=== PATIENT | female | born 1985 | race Caucasian/White ===

== ENCOUNTER 2018-05-12 11:11 | Outpatient (REF) | payer MEDICAID, SELFPAY ==
[2018-05-12 23:04] LABS: Cholesterol 168 mg/dL (50-200); HDL Cholesterol 37 mg/dL (40-60); LDL CHOLESTEROL 110 mg/dL (<100); TSH 2.31 uIU/mL (0.358-3.74); Triglyceride 94 mg/dL (30-150)
[2018-05-13 06:53] LABS: Vitamin D 25 Total 18.1 ng/ml (30-100)
[2018-05-14 09:38] LABS: Prolactin 8.1 ng/ml
[2018-05-17 12:13] LABS: 17-Hydroxyprogesterone 43 ng/dL
== END 2018-05-12 11:31 ==
LOC: NCHCN 11:11
PROVIDERS: PCP Registered Nurse; Visit Provider Registered Nurse
DX: N91.5 Oligomenorrhea, unspecified (principal); R53.83 Other fatigue; E66.01 Morbid (severe) obesity due to excess calories
CPT/HCPCS: 80061; 82306; 83721; 83498; 84146; 84443

== ENCOUNTER 2018-07-12 13:00 | Outpatient (REF) | payer MEDICAID, SELFPAY ==
[2018-07-12 22:09] LABS: Vitamin D 25 Total 24.6 ng/ml (30-100)
== END 2018-07-12 13:20 ==
LOC: NCHCN 13:00
PROVIDERS: PCP Registered Nurse; Visit Provider Registered Nurse
DX: E55.9 Vitamin D deficiency, unspecified (principal)
CPT/HCPCS: 82306

== ENCOUNTER 2019-04-21 12:29 | Outpatient (REF) | payer SELFPAY ==
[2019-04-21 20:44] LABS: HCT 42.8 % (36.0-46.0); HGB 13.5 g/dL (12.0-15.5); Mean Corp. HGB Concentration 31.5 g/dL (32.0-36.0); Mean Corpuscular Hemoglobin 26.6 pg (27.0-33.0); Mean Corpuscular Volume 84.4 fL (80-95); Mean Platelet Volume 10.7 fL (8.0-11.0); Platelet Count 432 x1000/uL (130-400); RBC 5.07 m/cumm (4.00-5.20); RBC Distribution Width 13.8 % (11.7-14.6); White Blood Cell Count 6.74 k/cumm (4.4-10.8)
[2019-04-21 21:19] LABS: ALT 25 U/L (14-59); AST 13 U/L (15-37); Albumin 3.6 g/dL (3.4-5.0); Alkaline Phosphatase 85 U/L (46-116); Anion Gap 8.7 mmol/L (3-11); BUN 10 mg/dL (7-18); Bilirubin, Total 0.5 mg/dL (0.2-1.0); CO2 31.3 mmol/L (21.0-32.0); Calcium 8.5 mg/dL (8.5-10.1); Chloride 101 mmol/L (98-107); Glucose 85 mg/dL (74-106); Potassium 4.4 mmol/L (3.5-5.1); Sodium 141 mmol/L (136-145); Total Protein 8.2 g/dL (6.4-8.2); Vitamin B12 532 pg/mL (193-986)
== END 2019-04-21 12:49 ==
LOC: NCHCN 12:29
PROVIDERS: PCP Registered Nurse; Visit Provider Registered Nurse
DX: E55.9 Vitamin D deficiency, unspecified (principal); F32.9 Major depressive disorder, single episode, unspecified; E66.01 Morbid (severe) obesity due to excess calories
CPT/HCPCS: 80053; 82306; 85027; 82607

== ENCOUNTER 2024-07-20 14:56 | Outpatient (REF) | payer OTHER, SELFPAY ==
[2024-07-20 15:01] LABS: HCT 39.7 % (36.0-46.0); HGB 12.2 g/dL (11.2-15.7); MCH 25.4 pg (27.0-33.0); MCHC 30.7 % (32.0-36.0); MCV 83 fL (80-95); MPV 10.8 fL (8.0-11.0); Platelet Count 322 10^3/uL (130-400); RDW 14.5 % (11.7-14.6); RDW-SD 43.1 fL; WBC 6.95 10^3/uL (4.4-10.8)
[2024-07-20 15:15] LABS: Hemoglobin A1C 5.7 % (<5.7)
[2024-07-20 15:31] LABS: ALT 20 U/L (14-59); AST 16 U/L (15-37); Albumin 3.2 g/dL (3.4-5.0); Alkaline Phosphatase 88 U/L (46-116); Anion Gap 7.3 mmol/L (3-11); BUN 9 mg/dL (7-18); Bilirubin, Total 0.5 mg/dL (0.2-1.0); CO2 32.7 mmol/L (21.0-32.0); CREATININE 0.8 mg/dL (0.55-1.02); Calcium 8.9 mg/dL (8.5-10.1); Calculated LDL 117 mg/dL (<100); Chloride 100 mmol/L (98-107); Cholesterol 187 mg/dL (<200); Estimated GFR 97.87 (mL/min/1.73m2); Glucose 102 mg/dL (74-106); HDL Cholesterol 51 mg/dL (>or=50); Sodium 140 mmol/L (136-145); TSH (W/Ref FT4) 3.17 uIU/mL (0.36-3.74); Total Protein 8.4 g/dL (6.4-8.2); Triglyceride 96 mg/dL (<150); Vitamin D 25 Total 15 ng/mL (30-100)
== END 2024-07-20 14:57 | disposition home or self-care (01) ==
LOC: NCHCN 14:56
PROVIDERS: PCP Registered Nurse; Visit Provider Internal Medicine
DX: E66.01 Morbid (severe) obesity due to excess calories (principal); I10 Essential (primary) hypertension; E55.9 Vitamin D deficiency, unspecified
CPT/HCPCS: 80053; 80061; 82306; 85027; 83036; 84443

== ENCOUNTER 2024-08-19 10:57 | Outpatient (REF) | payer OTHER, SELFPAY ==
[2024-08-19 15:39] LABS: Anion Gap 7.5 mmol/L (3-11); BUN 8 mg/dL (7-18); CO2 30.5 mmol/L (21.0-32.0); Calcium 9.1 mg/dL (8.5-10.1); Chloride 101 mmol/L (98-107); Estimated GFR 119.23 (mL/min/1.73m2); Glucose 102 mg/dL (74-106); Potassium 4.2 mmol/L (3.5-5.1); Sodium 139 mmol/L (136-145)
== END 2024-08-19 10:58 | disposition home or self-care (01) ==
LOC: NCHCN 10:57
PROVIDERS: PCP Registered Nurse; Visit Provider Internal Medicine
DX: I10 Essential (primary) hypertension (principal)
CPT/HCPCS: 80048

== ENCOUNTER 2024-10-13 14:49 | Outpatient (REF) | payer OTHER, SELFPAY ==
[2024-10-13 15:32] LABS: Vitamin D 25 Total 28 ng/mL (30-100)
== END 2024-10-13 14:50 | disposition home or self-care (01) ==
LOC: NCHCN 14:49
PROVIDERS: PCP Registered Nurse; Visit Provider Internal Medicine
DX: E55.9 Vitamin D deficiency, unspecified (principal)
CPT/HCPCS: 82306

== ENCOUNTER 2024-11-07 16:01 | Outpatient (REF) | payer OTHER, SELFPAY ==
[2024-11-07 17:29] LABS: Anion Gap 8.6 mmol/L (3-11); BUN 12 mg/dL (7-18); CO2 30.4 mmol/L (21.0-32.0); Calcium 11.0 mg/dL (8.5-10.1); Chloride 100 mmol/L (98-107); Estimated GFR 114.88 (mL/min/1.73m2); Glucose 94 mg/dL (74-106); Potassium 4.0 mmol/L (3.5-5.1); Sodium 139 mmol/L (136-145)
== END 2024-11-07 16:02 | disposition home or self-care (01) ==
LOC: NCHCN 16:01
PROVIDERS: PCP Registered Nurse; Visit Provider Internal Medicine
DX: I10 Essential (primary) hypertension (principal)
CPT/HCPCS: 80048

== ENCOUNTER 2024-12-14 13:08 | Outpatient (REF) | payer OTHER, SELFPAY ==
--- NOTE | 2024-12-14 09:00 | PAPFT_PTH ---
PATIENT: Flores Crowder LOC: [facility]#:[id number] AGE/SX: 39/F ROOM: RE12/14/[address]: Sara Gautam : 1985 BED: DIS: 12/14/2024 SPEC #: [id number] RECD: 12/14/24 18:01 STATUS: DARLENE ALEMAN #: [id number] NIKOLE: 12/14/24 09:[address]: Sara Gautam [facility] Cytology RECD BY: Marla [address] ENTERED: 12/14/24 18:01 SP TYPE: PAPFT OTHR DR: Anette Lugo Tissues: 1 - CX/ENDOCX FOR PAP SMEARS Procedures: PAP THIN PREP/[facility] Screening HPV DNA PROBE Comments: [id number] (HPV 16 & 18/45)
[2024-12-14 15:38] LABS: Microalb ug/mg Crea 85.1 ug/mg Cr
[2024-12-14 15:49] LABS: ALT 13 U/L (14-59); AST 14 U/L (15-37); Albumin 2.9 g/dL (3.4-5.0); Alkaline Phosphatase 80 U/L (46-116); Anion Gap 10.3 mmol/L (3-11); BUN 8 mg/dL (7-18); Bilirubin, Total 0.4 mg/dL (0.2-1.0); CO2 29.7 mmol/L (21.0-32.0); Calcium 9.0 mg/dL (8.5-10.1); Chloride 98 mmol/L (98-107); Ferritin 156 ng/mL (8-252); Glucose 105 mg/dL (74-106); Potassium 3.9 mmol/L (3.5-5.1); Sodium 138 mmol/L (136-145); Total Protein 8.3 g/dL (6.4-8.2); Vitamin B12 506 pg/mL (193-986); Vitamin D 25 Total 37 ng/mL (30-100)
== END 2024-12-14 13:09 | disposition home or self-care (01) ==
LOC: NCHCN 13:08
PROVIDERS: PCP Registered Nurse; Visit Provider Internal Medicine
DX: G25.81 Restless legs syndrome (principal); I10 Essential (primary) hypertension; N18.9 Chronic kidney disease, unspecified; Z12.4 Encounter for screening for malignant neoplasm of cervix
CPT/HCPCS: 80053; 82306; 88142; 82043; 82570; 82607; 82728; 83970; 87624